=== PATIENT | male | born 1970 | race African-American/Black ===

== ENCOUNTER 2022-06-03 04:29 | Day surgery (SDC) | payer OTHER ==
[2022-05-30 18:06] VITALS: BMI 26.1
[2022-06-03] MEDS ORDERED: KETOROLAC TROMETHAMINE 30 MG/1 ML VIAL ONE (15:40)
[2022-06-03] MEDS ORDERED: ONDANSETRON 4 MG/2 ML VIAL ONE (15:40)
[2022-06-03] MEDS ORDERED: PROPOFOL 20 ML ONE (15:57)
[2022-06-03 19:27] VITALS: RESP 20; TEMP 97.3
[2022-06-03 19:30] VITALS: BP 110/57; PULSE 75
== END 2022-06-03 17:15 | disposition home or self-care (01) ==
LOC: JASU-SURG 04:29
PROVIDERS: ATTEND Urology
PROC: 0TF4XZZ Fragmentation in Left Kidney Pelvis, External Approach (ICD-10-PCS; principal; 2022-06-03 15:30)
DX: N20.0 Calculus of kidney (principal)

== ENCOUNTER 2022-11-04 04:10 | Day surgery (SDC) | payer OTHER ==
[2022-10-31 09:19] VITALS: BMI 26.1
[2022-11-04 10:12] VITALS: RESP 20
[2022-11-04] MEDS ORDERED: PROPOFOL 20 ML ONE (12:25)
[2022-11-04] MEDS ORDERED: MIDAZOLAM HCL 2 MG/2 ML SINGLE DOSE VIAL ONE (12:25)
[2022-11-04 14:01] VITALS: BP 118/78; PULSE 56; TEMP 97.8
== END 2022-11-04 14:30 | disposition home or self-care (01) ==
LOC: JASU-SURG 04:10
PROVIDERS: ATTEND Urology
PROC: 0TF3XZZ Fragmentation in Right Kidney Pelvis, External Approach (ICD-10-PCS; principal; 2022-11-04 11:00)
DX: N20.0 Calculus of kidney (principal)